=== PATIENT | male | born 1965 | race Caucasian/White ===

== ENCOUNTER 2016-12-06 17:48 | Observation (INO) | payer OTHER ==
[~2016-12-06] VITALS: Ht 180.3 cm; Wt 66.5 kg
[~2016-12-06 17:48] MED LIST: ALBUAER19 INH; ASPI-390 PO; FLV1 PO; MULTTAB PO; PRLSR20 PO; THM100 PO; TRAM-10 PO
[2016-12-06] MEDS ORDERED: SODIUM CHLORIDE 0.9% 1000ML 1,000 ML IV ONE (18:45)
[2016-12-06] MEDS ORDERED: SODIUM CHLORIDE 0.9% 1000ML 1,000 ML IV STA (18:45)
[2016-12-06] MEDS ORDERED: MoRPHine SULFATE 4 MG/ML 1 ML CARP\\VIAL IV STA (18:45)
[2016-12-06] MEDS ORDERED: ONDANSETRON INJ 2 MG/ML 2 ML VIAL IV STA (18:45)
--- NOTE | 2016-12-06 19:01 | EMERGENCY ROOM VISIT NOTE ---
History Report prepared by Marianna: Juanpablo Oakes Under the Supervision of: Dr. Baudilio Sims M.D. First contact with patient: 18:40 Chief Complaint: ABDOMINAL PAIN Stated Complaint: STOMACH MAJOR PAIN Nursing Triage Summary: Mid abdominal pain, history of stomach ulcer . History of Present Illness The patient is a 51 year old male who presents to the Emergency Room with complaints of persistent upper abdominal pain starting a few days ago. He describes it to be a sharp pain radiating to his back. He ran out of prescribed Prilosec a few days ago. He denies any recent trauma, falls, or injuries. He denies any recent weight gain or loss. He also denies any fevers, chest pain, shortness of breath, nausea, vomiting, dark/bloody stools, diarrhea, urinary symptoms, testicular pain/swelling, or any other complaints. He has a history of a stomach ulcer. He did not drink alcohol in the past few weeks and denies any history of alcohol withdrawal symptoms. He denies any history of abdominal surgeries or esophageal varices. He also denies any history of pancreatitis or gallbladder issues. Source of History: patient Onset: a few days ago Position: abdomen (upper) Quality: sharp Timing: other (persistent) Associated Symptoms: No SOB, No chest pain, No diarrhea, No fevers, No nausea, No urinary symptoms, No vomiting Review of Systems See HPI for pertinent positives & negatives. A total of 10 systems reviewed and were otherwise negative. Past Medical & Surgical Medical Problems: (1) Abdominal pain (2) Alcohol abuse (3) Chest pain (4) GERD (gastroesophageal reflux disease) (5) History traumatic pneumothorax (6) Pneumonia (7) Stomach problems (8) Tobacco use disorder (9) Ulcer Surgical Problems: (1) H/O chest tube placement Old medical records were reviewed. Nurse's notes were reviewed and I agree with. Family History FH: CAD (coronary artery disease) FATHER (triple bypass in 70s) BROTHER (NH in 50s) FH: cancer FATHER (bone and prostate CA) Social History Smoking Status: Current Every Day Smoker Alcohol Use: occasionally Drug Use: none Housing Status: lives alone Occupation Status: employed Current/Historical Medications Scheduled Multivitamins/Minerals (Mvi With Minerals), 1 TAB PO DAILY Scheduled PRN Dqlegix-Olsfsdeuqlfhc-Yceumjdj (Excedrin Migraine), 1 TAB PO Q12 PRN for Headache Allergies Coded Allergies: No Known Allergies (Verified , 12/06/16) Physical Exam Vital Signs Date Time Temp Pulse Resp B/P Pulse Ox O2 Delivery O2 Flow Rate FiO2 12/06/16 21:49 77 11 142/89 99 Room Air 12/06/16 20:00 76 16 124/74 96 Room Air 12/06/16 19:18 76 12/06/16 17:59 36.5 74 16 130/82 99 Room Air Physical Exam General: Mildly ill-appearing, somewhat pale, slender, middle aged male, in no acute distress. HEENT: Normal cephalic atraumatic. Pupils are equal round and reactive to light. Sclerae anicteric. Extraocular movements are intact. Oropharynx is pink with moist mucous membranes. No swelling of the mouth lips or tongue. Neck: Supple with a midline trachea. No meningeal signs or stiffness, no JVD or bruits. No Stridor. Chest: Clear to auscultation bilaterally. No wheezes or rhonchi. No increased work of breathing. Heart: regular rate and rhythm. Abdomen: Soft, mildly tender epigastric region, nondistended without rebound guarding or rigidity. Rectal: Brown stool, guaiac negative. No masses. Extremities: No cyanosis clubbing or edema. No calf tenderness or assymetry Spine/Back. Non tender to palpation. No CVA tenderness Skin: Good turgor without rashes. Neurologic exam: Cranial nerves two through 12 are intact. Motor and sensation are intact and symmetrical throughout. Medical Decision & Procedures ER Provider Diagnostic Interpretation: X-ray results as stated below per interpretation by me and the radiologist: CHEST ONE VIEW PORTABLE CLINICAL HISTORY: CHEST PAIN dyspnea COMPARISON STUDY: 12/31/2015 FINDINGS: Chronic blunting left lateral costophrenic angle. Lungs are clear. Diaphragms smooth. No evidence for cardiac enlargement. IMPRESSION: No acute process. Chronic change. Electronically signed by: Sb Obrien M.D. 12/06/2016 7:14 PM Dictated Date/Time: 12/06/2016 7:[address] results as stated below per my review and radiologist interpretation: ABDOMEN AND PELVIS CT WITH IV CONTRAST CT DOSE: 279.24 mGy.cm HISTORY: Pain. Nausea. epigastric pain, low hemoglobin TECHNIQUE: Multiaxial CT images of the abdomen and pelvis were performed following the use of intravenous contrast. COMPARISON STUDY: None. FINDINGS: Lung bases are clear. Liver and spleen appear unremarkable. Kidneys are negative for hydronephrosis. Gallbladder is negative for distention. Stomach is negative for distention. There is increased fecal load throughout the colon. This consistent with a component of fecal stasis. There is trace amount of free fluid within the pelvic cul-de-sac. There is evidence for a a colocolic short segment intussusception at the level of the splenic flexure. This most likely is transient. It may be of doubtful clinical significance. There is no evidence for pneumatosis. There is no significant small bowel distention. Bladder is midline. IMPRESSION: 1. Considerable increase in fecal material throughout the entire colon consistent with fecal stasis. 2. Short segment colo-colic Intussusception left upper quadrant near the splenic flexure which is most likely a transient and/or intermittent phenomenon. It is most likely of doubtful clinical significance unless it persists. 3. Remainder the study is negative. Electronically signed by: Sb Obrien M.D. 12/06/2016 9:23 PM Dictated Date/Time: 12/06/2016 9:18 PM Laboratory Results 12/06/16 18:55 Red Blood Count 5.16, Mean Corpuscular Volume 59.7, Mean Corpuscular Hemoglobin 16.7, Mean Corpuscular Hemoglobin Concent 27.9, Mean Platelet Volume 8.8, Neutrophils (%) (Auto) 86.9, Lymphocytes (%) (Auto) 7.0, Monocytes (%) (Auto) 3.7, Eosinophils (%) (Auto) 2.0, Basophils (%) (Auto) 0.2, Neutrophils # (Auto) 11.55, Lymphocytes # (Auto) 0.93, Monocytes # (Auto) 0.49, Eosinophils # (Auto) 0.26, Basophils # (Auto) 0.02 12/06/16 21:43 12/06/16 18:55 Test 12/06/16 18:55 12/06/16 19:02 12/06/16 21:43 White Blood Count 13.28 K/uL (4.8-10.8) Red Blood Count 5.16 M/uL (4.7-6.1) Hemoglobin 8.6 g/dL (14.0-18.0) Hematocrit 30.8 % (42-52) Mean Corpuscular Volume 59.7 fL (80-100) Mean Corpuscular Hemoglobin 16.7 pg (25-34) Mean Corpuscular Hemoglobin Concent 27.9 g/dl (32-36) Platelet Count 498 K/uL (130-400) Mean Platelet Volume 8.8 fL (7.4-10.4) Neutrophils (%) (Auto) 86.9 % Lymphocytes (%) (Auto) 7.0 % Monocytes (%) (Auto) 3.7 % Eosinophils (%) (Auto) 2.0 % Basophils (%) (Auto) 0.2 % Neutrophils # (Auto) 11.55 K/uL (1.4-6.5) Lymphocytes # (Auto) 0.93 K/uL (1.2-3.4) Monocytes # (Auto) 0.49 K/uL (0.11-0.59) Eosinophils # (Auto) 0.26 K/uL (0-0.5) Basophils # (Auto) 0.02 K/uL (0-0.2) RDW Standard Deviation 43.5 fL (36.4-46.3) RDW Coefficient of Variation 20.1 % (11.5-14.5) Immature Granulocyte % (Auto) 0.2 % Immature Granulocyte # (Auto) 0.03 K/uL (0.00-0.02) Polychromasia 1+ Hypochromasia PRESENT Microcytosis PRESENT Ovalocytes 1+ Urine Color YELLOW Urine Appearance CLEAR (CLEAR) Urine pH 6.0 (4.5-7.5) Urine Specific Lamar 1.027 (1.000-1.030) Urine Protein NEG (NEG) Urine Glucose (UA) NEG (NEG) Urine Ketones NEG (NEG) Urine Occult Blood NEG (NEG) Urine Nitrite NEG (NEG) Urine Bilirubin NEG (NEG) Urine Urobilinogen NEG (NEG) Urine Leukocyte Esterase NEG (NEG) Anion Gap 7.0 mmol/L (3-11) Est Creatinine Clear Calc Drug Dose 102.8 ml/min Estimated GFR () 119.9 Estimated GFR (Non- 103.4 BUN/Creatinine Ratio 20.0 (10-20) Calcium Level 8.8 mg/dl (8.5-10.1) Magnesium Level 2.6 mg/dl (1.8-2.4) Total Bilirubin 0.4 mg/dl (0.2-1) Direct Bilirubin 0.1 mg/dl (0-0.2) Aspartate Amino Transf (AST/SGOT) 18 U/L (15-37) Alanine Aminotransferase (ALT/SGPT) 25 U/L (12-78) Alkaline Phosphatase 94 U/L (45-117) Total Protein 7.9 gm/dl (6.4-8.2) Albumin 4.0 gm/dl (3.4-5.0) Lipase 184 U/L (73-393) Thyroid Stimulating Hormone (TSH) 0.405 uIu/ml (0.300-4.500) Urine Opiates Screen NEG (NEG) Urine Methadone, Qualitative NEG (NEG) Urine Barbiturates NEG (NEG) Urine Phencyclidine (PCP) Level NEG (NEG) Ur Amphetamine/Methamphetamine POS (NEG) MDMA (Ecstasy) Screen POS (NEG) Urine Benzodiazepines Screen NEG (NEG) Urine Cocaine Metabolite NEG (NEG) Urine Marijuana (THC) POS (NEG) Bedside Troponin I 0.000 ng/ml (0-0.045) Absolute Reticulocyte Count 0.04 10^6/uL (0.02-0.10) Percent Reticulocyte Count 0.8 % (0.5-2.0) Prothrombin Time 10.5 SECONDS (9.0-12.0) Prothromb Time International Ratio 1.0 (0.9-1.1) Activated Partial Thromboplast Time 28.7 SECONDS (21.0-31.0) Partial Thromboplastin Ratio 1.1 Iron Level 12 mcg/dl (35-175) Total Iron Binding Capacity 403 mcg/dl (250-450) Transferrin 309 mg/dl (200-360) Transferrin % Saturation 3 % (20-50) Ferritin 2.8 ng/ml (8.0-388.0) Ammonia 23.0 umol/L (11-32) Vitamin B12 Level 392 pg/mL (211-911) Folate 15.15 ng/mL (>5.38) Ethyl Alcohol mg/dL < 3.0 mg/dl (0-3) Laboratory studies as stated above per my review. Medications Administered Medications (Trade) Dose Ordered Sig/Mello Route Start Time Stop Time Status Last Admin Dose Admin Morphine Sulfate (MoRPHine SULFATE INJ) 4 mg NOW STAT IV 12/06/16 18:45 12/06/16 18:46 DC 4/21/17 19:08 4 MG Ondansetron HCl 4 mg 4 mg NOW STAT IV 12/06/16 18:45 12/06/16 18:46 DC 12/06/16 19:07 4 MG Sodium Chloride 1,000 ml @ 999 mls/hr Q1H1M STAT IV 12/06/16 18:45 12/06/16 19:45 DC 12/06/16 19:06 999 MLS/HR Sodium Chloride 1,000 ml @ 200 mls/hr Q5H ONCE IV 12/06/16 18:45 12/06/16 22:21 DC 12/06/16 20:05 200 MLS/HR Pantoprazole Sodium 80 mg/ Dextrose 120 ml @ 480 mls/hr TODAY@2114 IV 12/06/16 21:15 12/06/16 21:29 DC 12/06/16 21:30 480 MLS/HR Pantoprazole Sodium/Dextrose (Protonix Inj/D5 100ml) 100 ml @ 20 mls/hr Q5H IV 12/06/16 21:30 12/07/16 02:29 12/06/16 21:58 20 MLS/HR ECG Indication: abdominal pain Rate (beats per minute): 51 Rhythm: normal sinus Findings: no acute ischemic change, other (increased voltage) Comparison ECG Date: January 01, 2016 Change: no significant change ED Course 1839: Past medical records reviewed. The patient was evaluated in room B03B, and a complete history and physical examination were performed. 1844: Zofran Inj 4 mg IV, Morphine Sulfate 4 mg IV 2054: I reevaluated the patient who was doing well. He was sleeping deeply but arousable. 2114: Pantoprazole Sodium 80 mg/Dextrose 120 ml @ 480 mls/hr IV 2110: Upon reevaluation, the patient is resting comfortably. I discussed the results and treatment plan with the patient. He verbalized agreement of the treatment plan. I discussed the patient's case with Dr. Harris, from [facility]. The patient will be evaluated for further management. 2129: Pantoprazole Sodium 40 mg/Dextrose 100 ml @ 20 mls/hr IV 2336: Dr. Castellon, general surgeon from [facility], saw the patient in the Emergency Room. He does not feel that the patient has acute surgical indication. He recommended GI consultation. The patient currently does not have any pain and he will be going up to the floor. I reported Dr. Castellon's recommendations to Dr. Harris. Medical Decision Differential diagnosis includes but is not limited to peptic ulcer disease, gastritis, electrolyte or metabolic abnormalities, pancreatitis, liver or gallbladder disease, cardiac disease. This patient comes in as described above. He is placed in room B3. He was having epigastric pain however he does not appear to be in significant distress at present he has some mild epigastric pain he denies any blood or melena stool although does appear to be pale and is being treated for peptic ulcer disease apparently I did a rectal exam on him and at present is guaiac negative. IV access established hydrated normal saline was given morphine 4 mg IV and Zofran 4 mg IV and he felt much better after this and he was very sleepy for a while but then woke up. I did a CAT scan of his abdomen and there are no acute findings .he does have a possible intussusception type pattern however the radiologist thinks is most likely incidental and non-pathologic. When I reassess him, he has no pain. I'm concerned that he has dropped his hemoglobin significantly to the mid eights. I suspect that he does have a peptic ulcer disease and may be having intermittent bleeding. He does seem very skinny as well and says he's lost some weight and GI malignancy would also be in the differential still. He will likely need endoscopy and further GI workup. He was given IV Protonix IV bolus. I did consult Dr. Chatterjee who saw the patient in the emergency department. The patient was also seen by Dr. Castellon ,the surgeon on-call, and he does not feel he has any acute surgical issues and recommended GI see him as well. I relayed this to Dr. Chatterjee and Dr. Channing Whitehead will admit the patient. Consults Time Called: 2056 [facility]ing Phys[facility] Returned Call: 2110 I discussed the patient's case with Dr. Harris, from [facility]. Additional Consults: Time Called: 2336 Consulted Physician: Dr. Castellon, general surgeon from [facility] Returned Call: 2336 Additional Comments: Dr. Castellon, general surgeon from [facility], saw the patient in the Emergency Room. He does not feel that the patient has acute surgical indication. He recommended GI consultation. The patient currently does not have any pain and he will be going up to the floor. I reported Dr. Castellon's recommendations to Dr. Harris. Impression Primary Impression: Epigastric abdominal pain Additional Impressions: Anemia GI bleed Scribe Attestation The scribe's documentation has been prepared under my direction and personally reviewed by me in its entirety. I confirm that the note above accurately reflects all work, treatment, procedures, and medical decision making performed by me. Departure Information Dispostion Being Evaluated By Hospitalist Referrals Chester Freeman M.D. (PCP) Patient Instructions My [facility] Problem Qualifiers
--- NOTE | 2016-12-06 19:16 | DIAGNOSTIC IMAGING REPORT ---
CHEST ONE VIEW PORTABLE CLINICAL HISTORY: CHEST PAIN dyspnea COMPARISON STUDY: 12/31/2015 FINDINGS: Chronic blunting left lateral costophrenic angle. Lungs are clear. Diaphragms smooth. No evidence for cardiac enlargement. IMPRESSION: No acute process. Chronic change. Electronically signed by: Sb Obrien M.D. 12/06/2016 7:14 PM Dictated Date/Time: 12/06/2016 7:13 PM
[2016-12-06 19:25] LABS: CALCIUM 8.8 mg/dl (8.5-10.1); CREATININE 0.8 mg/dl (0.60-1.40)
[2016-12-06 19:38] LABS: BASO % 0.2 %; BASO ABS # 0.02 K/uL (0-0.2); COMPLETE YES; HEMATOCRIT 30.8 % (42-52); HYPOCHROMIA PRESENT; IG% 0.2 %; LYMPH ABS # 0.93 K/uL (1.2-3.4); MEAN CELL VOLUME 59.7 fL (80-100); MEAN CORPUSCULAR HEMOGLOBIN 16.7 pg (25-34); MEAN CORPUSCULAR HGB CONC 27.9 g/dl (32-36); MEAN PLATELET VOLUME 8.8 fL (7.4-10.4); MICROCYTOSIS PRESENT; MONO % 3.7 %; NEUT % 86.9 %; OVALOCYTES 1+; PLATELET COUNT 498 K/uL (130-400); POLYCHROMASIA 1+; RED BLOOD COUNT 5.16 M/uL (4.7-6.1); WHITE BLOOD COUNT 13.28 K/uL (4.8-10.8)
[2016-12-06] MEDS ORDERED: OPTIRAY 320 IV PRN (21:00)
[2016-12-06] MEDS ORDERED: PANTOprazole INJ 80 MG in DEXTROSE 5% 100ML IV SCH (21:15)
--- NOTE | 2016-12-06 21:26 | DIAGNOSTIC IMAGING REPORT ---
ABDOMEN AND PELVIS CT WITH IV CONTRAST CT DOSE: 279.24 mGy.cm HISTORY: Pain. Nausea. epigastric pain, low hemoglobin TECHNIQUE: Multiaxial CT images of the abdomen and pelvis were performed following the use of intravenous contrast. COMPARISON STUDY: None. FINDINGS: Lung bases are clear. Liver and spleen appear unremarkable. Kidneys are negative for hydronephrosis. Gallbladder is negative for distention. Stomach is negative for distention. There is increased fecal load throughout the colon. This consistent with a component of fecal stasis. There is trace amount of free fluid within the pelvic cul-de-sac. There is evidence for a a colocolic short segment intussusception at the level of the splenic flexure. This most likely is transient. It may be of doubtful clinical significance. There is no evidence for pneumatosis. There is no significant small bowel distention. Bladder is midline. IMPRESSION: 1. Considerable increase in fecal material throughout the entire colon consistent with fecal stasis. 2. Short segment colo-colic Intussusception left upper quadrant near the splenic flexure which is most likely a transient and/or intermittent phenomenon. It is most likely of doubtful clinical significance unless it persists. 3. Remainder the study is negative. Electronically signed by: Sb Obrien M.D. 12/06/2016 9:23 PM Dictated Date/Time: 12/06/2016 9:18 PM
[2016-12-06] MEDS ORDERED: PANTOprazole INJ 40 MG in DEXTROSE 5% 100ML IV SCH (21:30)
[2016-12-06 21:39] LABS: MAGNESIUM 2.6 mg/dl (1.8-2.4); THYROID STIMULATING HORMONE 0.405 uIu/ml (0.300-4.500)
[2016-12-06 21:46] LABS: URINE APPEARANCE CLEAR (CLEAR); URINE BILIRUBIN NEG (NEG); URINE COLOR YELLOW; URINE NITRITE NEG (NEG); URINE SPECIFIC GRAVITY 1.027 (1.000-1.030); UROBILINOGEN NEG (NEG); ZZUR CULT IF INDIC CLEAN CATCH NO
[2016-12-06 21:48] LABS: MANUAL MICROSCOPIC REQUIRED? NO; REVIEW REQ? NO
[2016-12-06 21:54] LABS: BENZODIAZEPINE, URINE NEG (NEG); COCAINE,URINE NEG (NEG); PHENCYCLIDINE, URINE NEG (NEG)
[2016-12-06 22:09] LABS: PARTIAL THROMBOPLASTIN RATIO 1.1; PROTHROMBIN TIME (PATIENT) 10.5 SECONDS (9.0-12.0)
[2016-12-06 22:17] LABS: HEMATOCRIT 28.2 % (42-52)
[2016-12-06 22:19] LABS: FERRITIN 2.8 ng/ml (8.0-388.0)
[2016-12-06] MEDS ORDERED: SODIUM CHLORIDE 0.9% 1000ML 1,000 ML IV SCH ×2 (22:30→23:00)
--- NOTE | 2016-12-06 22:41 | DIAGNOSTIC IMAGING REPORT ---
HEAD CT NONCONTRAST CT DOSE: 601.98 mGy.cm HISTORY: Mental status change mtz, lethargy TECHNIQUE: Multiaxial CT images of the head were performed without the use of intravenous contrast. Comparison: None. Findings: The paranasal sinuses and mastoid air cells are clear. The calvarium and skull base are intact. The ventricles and sulci are within normal limits. There is no mass, hematoma, midline shift, or acute infarct. Impression: No acute intracranial abnormality. Electronically signed by: Sb Obrien M.D. 12/06/2016 10:39 PM Dictated Date/Time: 12/06/2016 10:38 PM
[2016-12-06] MEDS ORDERED: THIAMINE HCL 100 MG/ML 2 ML VIAL IV STA (22:53)
[2016-12-06] MEDS ORDERED: LORAZEPAM 2 MG/ML 1 ML VIAL IV PRN (23:00)
[2016-12-06] MEDS ORDERED: ACETAMINOPHEN IV 650 MG in EMPTY BAG 0 ML IV PRN (23:00)
[2016-12-06] MEDS ORDERED: ACETAMINOPHEN 325 MG TAB PO PRN (23:00)
[2016-12-06] MEDS ORDERED: MoRPHine SULFATE 2 MG/ML CARP IV PRN (23:00)
[2016-12-06] MEDS ORDERED: ONDANSETRON INJ 2 MG/ML 2 ML VIAL IV PRN (23:00)
[2016-12-06] MEDS ORDERED: TRAMADOL HCL 50 MG TAB PO PRN (23:00)
[2016-12-06] MEDS ORDERED: THIAMINE HCL INJ 100 MG in SYRINGE 9 ML IV STA (23:10)
[2016-12-06 23:15] VITALS: O2SAT 100
[2016-12-06 23:40] VITALS: BP 142/89; PULSE 62; TEMP 36.4; O2SAT 100; Ht 180.3 cm; Wt 66.5 kg
[2016-12-06] MEDS ORDERED: DOCUSATE SODIUM 100 MG CAP PO STA (23:44)
--- NOTE | 2016-12-06 23:47 | History and Physical ---
History & Physical Date & Time of Service: Dec 06, 2016 at 23:36 Chief Complaint: Stomach Major Pain Primary Care Physician: Chester Freeman M.D. History of Present Illness Source: patient The patient is a 51 year old male who presents to the Emergency Room with complaints of persistent upper abdominal pain starting a few days ago. He describes it to be a sharp pain radiating to his back. He ran out of prescribed Prilosec 1-2 weeks days ago. He denies any recent trauma, falls, or injuries. He denies any recent weight gain or loss. He also denies any fevers, chest pain , shortness of breath, nausea, vomiting, dark/bloody stools, diarrhea, urinary symptoms, testicular pain/swelling, or any other complaints. He has a history of a stomach ulcer. He did not drink alcohol in the past few weeks and denies any history of alcohol withdrawal symptoms. He denies any history of abdominal surgeries or esophageal varices. He also denies any history of pancreatitis or gallbladder issues. now pt said he feels better, no abdominal pain, no nausea, no vomiting. Past Medical/Surgical History Medical Problems: (1) Alcohol abuse Status: Chronic (2) GERD (gastroesophageal reflux disease) Status: Chronic (3) History traumatic pneumothorax Status: Chronic (4) Pneumonia Status: Resolved (5) Stomach problems Status: Chronic (6) Tobacco use disorder Status: Chronic Surgical Problems: (1) H/O chest tube placement Status: Chronic Family History FH: CAD (coronary artery disease) FATHER (triple bypass in 70s) BROTHER ([place] in 50s) FH: cancer FATHER (bone and prostate CA) Social History Smoking Status: Current Every Day Smoker Alcohol Use: occasionally Drug Use: none Occupational Status: employed Immunizations History of Influenza Vaccine: No History of Tetanus Vaccine?: Yes Tetanus Immunization Date: Jan 25, 2007 History of Pneumococcal: No History of Hepatitis B Vaccine: No Allergies Coded Allergies: No Known Allergies (Verified , 12/06/16) Home Medications Scheduled Multivitamins/Minerals (Mvi With Minerals), 1 TAB PO DAILY Scheduled PRN Obmdfno-Osikqdlkxeabv-Kyyjxdvt (Excedrin Migraine), 1 TAB PO Q12 PRN for Headache Review of Systems Constitutional: No chills, No fatigue, No fever, No problem reported, No sweats , No weakness, No weight loss Eyes: No diplopia, No discharge, No eye pain, No problem reported, No redness, No worsening of vision ENT: No dental problems, No hearing loss, No nasal symptoms, No problem reported, No sore throat, No tinnitus, No trouble swallowing, No unusual epistaxis Respiratory: No cough, No dyspnea at rest, No dyspnea on exertion, No hemoptysis, No problem reported, No shortness of breath, No sputum, No wheezing Cardiovascular: No PND, No chest pain, No claudication, No edema, No orthopnea , No palpitations, No problem reported Abdomen: + pain (epigastric pain, ) Genitourinary - Male: No dysuria, No hematuria, No impotence, No lesions, No penile discharge, No problem reported, No urinary frequency, No urinary hesitancy, No urinary incontinence, No urinary retention, No urinary urgency Neurologic: No balance problems, No memory loss, No numbness/tingling, No paralysis, No problem reported, No vertigo, No weakness Psychiatric: No anhedonism, No anxiety, No depression symptoms, No insomnia, No problem reported, No substance abuse Endocrine: No excessive thirst, No excessive urination, No fatigue, No problem reported Hematologic / Lymphatic: No abnormal bleeding/bruising, No clotting problems, No night sweats, No problem reported, No swollen lymph nodes Allergic / Immunologic: No environmental allergies, No food allergies, No frequent infections, No hives, No pet sensitivities, No poor healing, No problem reported, No prolonged convalescence, No seasonal allergies Physical Exam Vital Signs Date Time Temp Pulse Resp B/P Pulse Ox O2 Delivery O2 Flow Rate FiO2 12/06/16 23:15 66 14 135/81 100 12/06/16 23:00 79 12/06/16 21:49 77 11 142/89 99 Room Air 12/06/16 20:00 76 16 124/74 96 Room Air 12/06/16 19:18 76 12/06/16 17:59 36.5 74 16 130/82 99 Room Air General Appearance: WD/WN, no apparent distress Head: normocephalic, atraumatic Eyes: normal inspection ENT: normal ENT inspection Neck: supple, no adenopathy, no JVD Respiratory/Chest: chest non-tender, lungs clear, normal breath sounds Cardiovascular: regular rate, rhythm, no edema, no gallop, no JVD Abdomen/GI: normal bowel sounds, non tender, soft, no organomegaly Extremities/Musculoskelatal: normal inspection, no calf tenderness, normal capillary refill Diagnostics Laboratory Results Results Past 24 Hours Test 12/06/16 18:55 12/06/16 19:02 12/06/16 21:20 12/06/16 21:43 Range/Units White Blood Count 13.28 4.8-10.8 K/uL Red Blood Count 5.16 4.7-6.1 M/uL Hemoglobin 8.6 7.7 14.0-18.0 g/dL Hematocrit 30.8 28.2 42-52 % Mean Corpuscular Volume 59.7 80-100 fL Mean Corpuscular Hemoglobin 16.7 25-34 pg Mean Corpuscular Hemoglobin Concent 27.9 32-36 g/dl Platelet Count 498 130-400 K/uL Mean Platelet Volume 8.8 7.4-10.4 fL Neutrophils (%) (Auto) 86.9 % Lymphocytes (%) (Auto) 7.0 % Monocytes (%) (Auto) 3.7 % Eosinophils (%) (Auto) 2.0 % Basophils (%) (Auto) 0.2 % Neutrophils # (Auto) 11.55 1.4-6.5 K/uL Lymphocytes # (Auto) 0.93 1.2-3.4 K/uL Monocytes # (Auto) 0.49 0.11-0.59 K/uL Eosinophils # (Auto) 0.26 0-0.5 K/uL Basophils # (Auto) 0.02 0-0.2 K/uL RDW Standard Deviation 43.5 36.4-46.3 fL RDW Coefficient of Variation 20.1 11.5-14.5 % Immature Granulocyte % (Auto) 0.2 % Immature Granulocyte # (Auto) 0.03 0.00-0.02 K/uL Polychromasia 1+ Hypochromasia PRESENT Microcytosis PRESENT Ovalocytes 1+ Urine Color YELLOW Urine Appearance CLEAR CLEAR Urine pH 6.0 4.5-7.5 Urine Specific [place] 1.027 1.000-1.030 Urine Protein NEG NEG Urine Glucose (UA) NEG NEG Urine Ketones NEG NEG Urine Occult Blood NEG NEG Urine Nitrite NEG NEG Urine Bilirubin NEG NEG Urine Urobilinogen NEG NEG Urine Leukocyte Esterase NEG NEG Sodium Level 140 136-145 mmol/L Potassium Level 4.0 3.5-5.1 mmol/L Chloride Level 105 98-107 mmol/L Carbon Dioxide Level 28 21-32 mmol/L Anion Gap 7.0 3-11 mmol/L Blood Urea Nitrogen 16 7-18 mg/dl Creatinine 0.80 0.60-1.40 mg/dl Est Creatinine Clear Calc Drug Dose 102.8 ml/min Estimated GFR () 119.9 Estimated GFR (Non- 103.4 BUN/Creatinine Ratio 20.0 10-20 Random Glucose 120 70-99 mg/dl Calcium Level 8.8 8.5-10.1 mg/dl Magnesium Level 2.6 1.8-2.4 mg/dl Total Bilirubin 0.4 0.2-1 mg/dl Direct Bilirubin 0.1 0-0.2 mg/dl Aspartate Amino Transf (AST/SGOT) 18 15-37 U/L Alanine Aminotransferase (ALT/SGPT) 25 12-78 U/L Alkaline Phosphatase 94 45-117 U/L Total Protein 7.9 6.4-8.2 gm/dl Albumin 4.0 3.4-5.0 gm/dl Lipase 184 73-393 U/L Thyroid Stimulating Hormone (TSH) 0.405 0.300-4.500 uIu/ml Urine Opiates Screen NEG NEG Urine Methadone, Qualitative NEG NEG Urine Barbiturates NEG NEG Urine Phencyclidine (PCP) Level NEG NEG Ur Amphetamine/Methamphetamine POS NEG MDMA (Ecstasy) Screen POS NEG Urine Benzodiazepines Screen NEG NEG Urine Cocaine Metabolite NEG NEG Urine Marijuana (THC) POS NEG Bedside Troponin I 0.000 0-0.045 ng/ml Transferrin % Saturation 3 20-50 % Absolute Reticulocyte Count 0.04 0.02-0.10 10^6/uL Percent Reticulocyte Count 0.8 0.5-2.0 % Prothrombin Time 10.5 9.0-12.0 SECONDS Prothromb Time International Ratio 1.0 0.9-1.1 Activated Partial Thromboplast Time 28.7 21.0-31.0 SECONDS Partial Thromboplastin Ratio 1.1 Iron Level 12 35-175 mcg/dl Total Iron Binding Capacity 403 250-450 mcg/dl Transferrin 309 200-360 mg/dl Ferritin 2.8 8.0-388.0 ng/ml Ammonia 23.0 11-32 umol/L Vitamin B12 Level 392 211-911 pg/mL Folate 15.15 >5.38 ng/mL Ethyl Alcohol mg/dL < 3.0 0-3 mg/dl Diagnostic Radiology CT scan abd + pelvis-IMPRESSION: 1. Considerable increase in fecal material throughout the entire colon consistent with fecal stasis. 2. Short segment colo-colic Intussusception left upper quadrant near the splenic flexure which is most likely a transient and/or intermittent phenomenon. It is most likely of doubtful clinical significance unless it persists. 3. Remainder the study is negative. Impression Assessment and Plan IMP: anemia, possible GI ulcer cause Short segment colo-colic Intussusception left upper quadrant near the splenic flexure which is most likely a transient and/or intermittent phenomenon. It is most likely of doubtful clinical significance unless it persists. I recommend to hospitalist admit pt to hospital, GI doctor consult to R/O GI ulcer, barium enema study to Dx and treatment for colo-colonic intussusception, no surgical indication now, repeat labs in am. I will F/U D/W ER attending, VTE Prophylaxis VTE Risk Assessment Done? Y/N: Yes Risk Level: Moderate
[2016-12-07] MEDS ORDERED: GABAPENTIN 600 MG TAB PO STA (00:16)
[2016-12-07] MEDS ORDERED: IV FLUIDS COMPLETED PRN (00:45)
--- NOTE | 2016-12-07 00:57 | HISTORY & PHYSICAL EXAMINATION ---
DATE OF ADMISSION: 12/06/2016 PRIMARY CARE PHYSICIAN: Dr. Freeman. Hx obtained from px and records. CHIEF COMPLAINT: Abdominal pain. HISTORY OF PRESENT ILLNESS: Medical history significant alcohol and tobacco abuse, as per records. Recent confinement, last December 2015, for chest pain attributed to musculoskeletal pathology. A few days' history of epigastric pain, sharp, sometimes going to the back. No nausea, no vomiting. Good bowel movement. No fever, no chills, no black or bloody stools, no emesis, no unusual weight loss. Patient admits to taking a lot of Excedrin for headache symptoms, about 4x day. Px compliant with home OTC Prilosec. At the Emergency Room, the patient received Protonix. Hemoccult in the ER was negative. MEDICAL HISTORY: As above. No previous endoscopies in the past. SURGERIES: He had a chest tube insertion for traumatic pneumothorax. HOME MEDICATIONS: Home medications are Excedrin, multivitamins, Prilosec. ALLERGIES: No known drug allergies. FAMILY HISTORY: Heart disease, bone and prostate cancer. PERSONAL AND SOCIAL HISTORY: Half pack daily. Last drink was about 2 weeks ago. [employer] employee. REVIEW OF SYSTEMS: As per HPI, all other ROS negative. PHYSICAL EXAMINATION: VITAL SIGNS: Blood pressure was noted to be 130/80, pulse rate 70, RR 16, temperature 36.5, sats 98 on room air. GENERAL: Noted to be uncomfortable. No respiratory distress. lethargic SKIN: pallor. HEENT: Pale palpebral conjunctivae. Dry mucosa. NECK: No JVD. supple CHEST: Clear to auscultation. HEART: Regular rate and rhythm. ABDOMEN: Epigastric tenderness. EXTREMITIES: No edema. no tenderness NEUROLOGIC: No gross focality, except for some lethargy. LABS: Hemoglobin 8.6, hematocrit 30.8, patient's baseline was 13 from last year, white cell count 13, platelets 498. Coags were normal. Sodium 140, potassium 4, chloride 105, CO2 28, BUN 16.8, glucose 120. LFTs, lipase normal. CT of the head, no acute pathology. Chest x-ray, no acute process. CT abdomen and pelvis showed considerable increase in fecal material, could consider fecal stasis, short segment colocolic intussusception, LUQ, splenic flexure, most likely transient and/or intermittent phenomenon, possible doubtful clinical process. UA normal UDS pos for amphetamine, ecstasy, marijuana ASSESSMENT: 1. Abdominal pain possible gastritis from Excedrin/ETOH intake, ? colo-colonic intussusception on CT fecal retention. 2. Vdakl-[id number] anemia, hemoglobin drop. poss slow GI bleed initial FOBT negative. 3. Ongoing tobacco abuse, alcohol abuse. PLAN: Observation GMF analgesia. Patient cautioned about use of OTC NSAIDs. Repeat Hemoccult. anemia sweeney ff HH, transfuse prbc if Hg less than 7 and/or symptomatic anemia May need GI consult double home PPI dose Surgery consult RE abnormal CT, possible intussusception DT precautions. DVT prophylaxis, SCDs re poss GI Bleed nicotine patch Full code. Patient considering following up with Dr. Pieter Brody upon discharge from the hospital. OTNID
[2016-12-07 03:38] VITALS: BP 161/88; PULSE 79; TEMP 36.9; O2SAT 99
[2016-12-07] MEDS: GABAPENTIN 600 MG TAB PO SCH ×3 (05:43→19:44)
[2016-12-07 07:17] VITALS: BP 138/81; PULSE 71; TEMP 36.5; O2SAT 97
[2016-12-07 07:41] LABS: HEMATOCRIT 28.4 % (42-52); MEAN CELL VOLUME 60.2 fL (80-100); MEAN CORPUSCULAR HEMOGLOBIN 16.5 pg (25-34); MEAN CORPUSCULAR HGB CONC 27.5 g/dl (32-36); MEAN PLATELET VOLUME 8.4 fL (7.4-10.4); PLATELET COUNT 416 K/uL (130-400); RED BLOOD COUNT 4.72 M/uL (4.7-6.1); WHITE BLOOD COUNT 8.73 K/uL (4.8-10.8)
[2016-12-07 08:09] LABS: ANISOCYTOSIS PRESENT; BASO % 0.5 %; BASO ABS # 0.04 K/uL (0-0.2); COMPLETE YES; EOS % 4.9 %; HYPOCHROMIA PRESENT; IG% 0.2 %; LYMPH % 13.3 %; LYMPH ABS # 1.16 K/uL (1.2-3.4); MICROCYTOSIS PRESENT; NEUT % 75.1 %; OVALOCYTES 1+
[2016-12-07] MEDS: THIAMINE HCL 100 MG TAB PO SCH (08:25)
[2016-12-07] MEDS: NICOTINE 14 MG/24 HR TDSY TD SCH (08:26)
[2016-12-07] MEDS: PANTOprazole SOD 40 MG TAB PO SCH ×2 (08:26→21:06)
[2016-12-07] MEDS: CEROVITE ADV FORMULA TAB PO SCH (08:26)
[2016-12-07] MEDS: DOCUSATE SODIUM 100 MG CAP PO SCH (08:27)
--- NOTE | 2016-12-07 10:04 | Surgery Progress Note ---
Surgery Progress Note Date of Service Dec 07, 2016. Subjective + feeling well pt is doing better, no abdominal pain, no nausea, no vomiting, passed gas, he tolerated diet. Objective Vital Signs: Date Time Temp Pulse Resp B/P Pulse Ox O2 Delivery O2 Flow Rate FiO2 12/07/16 07:17 36.5 71 16 138/81 97 Room Air 12/07/16 03:38 36.9 79 16 161/88 99 Room Air 12/06/16 23:40 Room Air 12/06/16 23:40 Room Air 12/06/16 23:40 36.4 62 16 142/89 100 Room Air 12/06/16 23:15 66 14 135/81 100 12/06/16 23:00 79 12/06/16 21:49 77 11 142/89 99 Room Air 12/06/16 20:00 76 16 124/74 96 Room Air 12/06/16 19:18 76 12/06/16 17:59 36.5 74 16 130/82 99 Room Air General Appearance: WD/WN Head: normocephalic Neck: supple Respiratory/Chest: chest non-tender, lungs clear Cardiovascular: regular rate, rhythm, no edema, no gallop, no JVD Abdomen: normal bowel sounds, non tender, non distended, soft, no organomegaly Extremities: normal range of motion, non-tender, normal inspection Laboratory Results: Results Past 24 Hours Test 12/06/16 18:55 12/06/16 19:02 12/06/16 21:20 12/06/16 21:43 Range/Units White Blood Count 13.28 4.8-10.8 K/uL Red Blood Count 5.16 4.7-6.1 M/uL Hemoglobin 8.6 7.7 14.0-18.0 g/dL Hematocrit 30.8 28.2 42-52 % Mean Corpuscular Volume 59.7 80-100 fL Mean Corpuscular Hemoglobin 16.7 25-34 pg Mean Corpuscular Hemoglobin Concent 27.9 32-36 g/dl Platelet Count 498 130-400 K/uL Mean Platelet Volume 8.8 7.4-10.4 fL Neutrophils (%) (Auto) 86.9 % Lymphocytes (%) (Auto) 7.0 % Monocytes (%) (Auto) 3.7 % Eosinophils (%) (Auto) 2.0 % Basophils (%) (Auto) 0.2 % Neutrophils # (Auto) 11.55 1.4-6.5 K/uL Lymphocytes # (Auto) 0.93 1.2-3.4 K/uL Monocytes # (Auto) 0.49 0.11-0.59 K/uL Eosinophils # (Auto) 0.26 0-0.5 K/uL Basophils # (Auto) 0.02 0-0.2 K/uL RDW Standard Deviation 43.5 36.4-46.3 fL RDW Coefficient of Variation 20.1 11.5-14.5 % Immature Granulocyte % (Auto) 0.2 % Immature Granulocyte # (Auto) 0.03 0.00-0.02 K/uL Polychromasia 1+ Hypochromasia PRESENT Microcytosis PRESENT Ovalocytes 1+ Urine Color YELLOW Urine Appearance CLEAR CLEAR Urine pH 6.0 4.5-7.5 Urine Specific [place] 1.027 1.000-1.030 Urine Protein NEG NEG Urine Glucose (UA) NEG NEG Urine Ketones NEG NEG Urine Occult Blood NEG NEG Urine Nitrite NEG NEG Urine Bilirubin NEG NEG Urine Urobilinogen NEG NEG Urine Leukocyte Esterase NEG NEG Sodium Level 140 136-145 mmol/L Potassium Level 4.0 3.5-5.1 mmol/L Chloride Level 105 98-107 mmol/L Carbon Dioxide Level 28 21-32 mmol/L Anion Gap 7.0 3-11 mmol/L Blood Urea Nitrogen 16 7-18 mg/dl Creatinine 0.80 0.60-1.40 mg/dl Est Creatinine Clear Calc Drug Dose 102.8 ml/min Estimated GFR () 119.9 Estimated GFR (Non- 103.4 BUN/Creatinine Ratio 20.0 10-20 Random Glucose 120 70-99 mg/dl Calcium Level 8.8 8.5-10.1 mg/dl Magnesium Level 2.6 1.8-2.4 mg/dl Total Bilirubin 0.4 0.2-1 mg/dl Direct Bilirubin 0.1 0-0.2 mg/dl Aspartate Amino Transf (AST/SGOT) 18 15-37 U/L Alanine Aminotransferase (ALT/SGPT) 25 12-78 U/L Alkaline Phosphatase 94 45-117 U/L Total Protein 7.9 6.4-8.2 gm/dl Albumin 4.0 3.4-5.0 gm/dl Lipase 184 73-393 U/L Thyroid Stimulating Hormone (TSH) 0.405 0.300-4.500 uIu/ml Urine Opiates Screen NEG NEG Urine Methadone, Qualitative NEG NEG Urine Barbiturates NEG NEG Urine Phencyclidine (PCP) Level NEG NEG Ur Amphetamine/Methamphetamine POS NEG MDMA (Ecstasy) Screen POS NEG Urine Benzodiazepines Screen NEG NEG Urine Cocaine Metabolite NEG NEG Urine Marijuana (THC) POS NEG Bedside Troponin I 0.000 0-0.045 ng/ml Transferrin % Saturation 3 20-50 % Absolute Reticulocyte Count 0.04 0.02-0.10 10^6/uL Percent Reticulocyte Count 0.8 0.5-2.0 % Prothrombin Time 10.5 9.0-12.0 SECONDS Prothromb Time International Ratio 1.0 0.9-1.1 Activated Partial Thromboplast Time 28.7 21.0-31.0 SECONDS Partial Thromboplastin Ratio 1.1 Iron Level 12 35-175 mcg/dl Total Iron Binding Capacity 403 250-450 mcg/dl Transferrin 309 200-360 mg/dl Ferritin 2.8 8.0-388.0 ng/ml Ammonia 23.0 11-32 umol/L Vitamin B12 Level 392 211-911 pg/mL Folate 15.15 >5.38 ng/mL Ethyl Alcohol mg/dL < 3.0 0-3 mg/dl Test 12/07/16 07:06 Range/Units White Blood Count 8.73 4.8-10.8 K/uL Red Blood Count 4.72 4.7-6.1 M/uL Hemoglobin 7.8 14.0-18.0 g/dL Hematocrit 28.4 42-52 % Mean Corpuscular Volume 60.2 80-100 fL Mean Corpuscular Hemoglobin 16.5 25-34 pg Mean Corpuscular Hemoglobin Concent 27.5 32-36 g/dl Platelet Count 416 130-400 K/uL Mean Platelet Volume 8.4 7.4-10.4 fL Neutrophils (%) (Auto) 75.1 % Lymphocytes (%) (Auto) 13.3 % Monocytes (%) (Auto) 6.0 % Eosinophils (%) (Auto) 4.9 % Basophils (%) (Auto) 0.5 % Neutrophils # (Auto) 6.56 1.4-6.5 K/uL Lymphocytes # (Auto) 1.16 1.2-3.4 K/uL Monocytes # (Auto) 0.52 0.11-0.59 K/uL Eosinophils # (Auto) 0.43 0-0.5 K/uL Basophils # (Auto) 0.04 0-0.2 K/uL RDW Standard Deviation 43.4 36.4-46.3 fL RDW Coefficient of Variation 19.9 11.5-14.5 % Immature Granulocyte % (Auto) 0.2 % Immature Granulocyte # (Auto) 0.02 0.00-0.02 K/uL Hypochromasia PRESENT Anisocytosis PRESENT Microcytosis PRESENT Ovalocytes 1+ Assessment & Plan IMP:Short segment colo-colic Intussusception left upper quadrant near the splenic flexure which is most likely a transient and/or intermittent phenomenon. base on pt has no abdominal pain, no N/V, I sign off today, please call me if any change, Thanks, regular diet
[2016-12-07 12:00] VITALS: BP 135/82; PULSE 69; TEMP 36.7; O2SAT 99
[2016-12-07 12:25] LABS: HEMATOCRIT 31.7 % (42-52)
[2016-12-07 15:46] VITALS: BP 146/89; PULSE 69; TEMP 36.3; O2SAT 99
[2016-12-07 17:48] LABS: HEMATOCRIT 29.9 % (42-52)
--- NOTE | 2016-12-07 18:37 | Progress Note ---
Subjective Date of Service: Dec 07, 2016. Subjective Pt evaluation today including: conversation w/ patient, physical exam, lab review, review of studies, review of inpatient medication list Saw/examined the patient in room 376 Doing well, abdominal pain improved; no nausea/vomiting tolerated clears; eager to eat "real food" Problem List Medical Problems: (1) Anemia Status: Acute (2) Epigastric abdominal pain Status: Acute (3) GI bleed Status: Acute Review of Systems Constitutional: No chills, No fever Respiratory: No shortness of breath Cardiac: No chest pain Abdomen: + nausea, + pain (improving, umbilical pain), + vomiting (resolved) Heme: No abnormal bleeding/bruising Medications Current Inpatient Medications Medications (Trade) Dose Ordered Sig/Mello Route Start Time Stop Time Status Last Admin Dose Admin Ioversol (Optiray 320) 100 ml UD PRN IV 12/06/16 21:00 12/10/16 20:59 Acetaminophen (Tylenol Tab) 650 mg Q4H PRN PO 12/06/16 23:00 01/05/17 22:59 Multivitamins/ Minerals (Multivitamin W/ Minerals Tab) 1 tab DAILY PO 12/07/16 09:00 01/06/17 08:59 12/07/16 08:26 1 TAB Pantoprazole Sodium (Protonix Tab) 40 mg BID PO 12/07/16 09:00 01/06/17 08:59 12/07/16 08:26 40 MG Ondansetron HCl (Zofran Inj) 4 mg Q6H PRN IV 12/06/16 23:00 01/05/17 22:59 Docusate Sodium (coLACE CAP) 100 mg DAILY PO 12/07/16 09:00 Thiamine HCl (Vitamin B-1 Tab) 100 mg QAM PO 12/07/16 09:00 01/06/17 08:59 12/07/16 08:25 100 MG Folic Acid 1 mg 1 mg QAM PO 12/07/16 09:00 01/06/17 08:59 12/07/16 08:25 1 MG Acetaminophen/ Empty Bag (Ofirmev Iv/ Empty Iv Bag 100ml) 65 ml @ 260 mls/hr Q6H PRN IV 12/06/16 23:00 01/05/17 22:59 Tramadol HCl (Ultram Tab) 25 mg Q6H PRN PO 12/06/16 23:00 01/05/17 22:59 Morphine Sulfate (MoRPHine SULFATE INJ) 2 mg Q4H PRN IV 12/06/16 23:00 12/20/16 22:59 Lorazepam (Ativan Inj) 1 mg ONE PRN IV 12/06/16 23:00 Nicotine (Nicoderm Cq 14MG Patch) 1 patch QAM TD 12/07/16 09:00 01/06/17 08:59 12/07/16 08:26 1 PATCH Miscellaneous (Remove Nicoderm Patch) 1 ea HS N/A 12/07/16 21:00 01/06/17 20:59 Gabapentin (Neurontin Tab) 600 mg Q8H PO 12/07/16 20:00 12/08/16 12:01 Gabapentin (Neurontin Tab) 600 mg Q12H PO 12/09/16 00:00 12/09/16 12:01 Gabapentin (Neurontin Tab) 600 mg TODAY@1200 PO 12/10/16 12:00 12/10/16 12:01 Miscellaneous (Iv Fluids Completed) 1 ea PRN PRN N/A 12/07/16 00:45 12/07/17 00:44 Objective Vital Signs Date Time Temp Pulse Resp B/P Pulse Ox O2 Delivery O2 Flow Rate FiO2 12/07/16 15:46 36.3 69 18 146/89 99 Room Air 12/07/16 15:30 Room Air 12/07/16 12:00 36.7 69 16 135/82 99 Room Air 12/07/16 08:00 Room Air 12/07/16 07:17 36.5 71 16 138/81 97 Room Air 12/07/16 03:38 36.9 79 16 161/88 99 Room Air 12/06/16 23:40 Room Air 12/06/16 23:40 Room Air 12/06/16 23:40 36.4 62 16 142/89 100 Room Air 12/06/16 23:15 66 14 135/81 100 12/06/16 23:00 79 12/06/16 21:49 77 11 142/89 99 Room Air 12/06/16 20:00 76 16 124/74 96 Room Air 12/06/16 19:18 76 Physical Exam General Appearance: no apparent distress, + thin Respiratory/Chest: lungs clear, normal breath sounds, no respiratory distress, no accessory muscle use Cardiovascular: regular rate, rhythm, no edema, no murmur Abdomen: normal bowel sounds, soft, + tenderness (mild epigastric/umbilical tenderness) Laboratory Results Last 24 Hours Test 12/06/16 18:55 12/06/16 19:02 12/06/16 21:20 12/06/16 21:43 White Blood Count 13.28 K/uL Red Blood Count 5.16 M/uL Hemoglobin 8.6 g/dL 7.7 g/dL Hematocrit 30.8 % 28.2 % Mean Corpuscular Volume 59.7 fL Mean Corpuscular Hemoglobin 16.7 pg Mean Corpuscular Hemoglobin Concent 27.9 g/dl Platelet Count 498 K/uL Mean Platelet Volume 8.8 fL Neutrophils (%) (Auto) 86.9 % Lymphocytes (%) (Auto) 7.0 % Monocytes (%) (Auto) 3.7 % Eosinophils (%) (Auto) 2.0 % Basophils (%) (Auto) 0.2 % Neutrophils # (Auto) 11.55 K/uL Lymphocytes # (Auto) 0.93 K/uL Monocytes # (Auto) 0.49 K/uL Eosinophils # (Auto) 0.26 K/uL Basophils # (Auto) 0.02 K/uL RDW Standard Deviation 43.5 fL RDW Coefficient of Variation 20.1 % Immature Granulocyte % (Auto) 0.2 % Immature Granulocyte # (Auto) 0.03 K/uL Polychromasia 1+ Hypochromasia PRESENT Microcytosis PRESENT Ovalocytes 1+ Urine Color YELLOW Urine Appearance CLEAR Urine pH 6.0 Urine Specific [place] 1.027 Urine Protein NEG Urine Glucose (UA) NEG Urine Ketones NEG Urine Occult Blood NEG Urine Nitrite NEG Urine Bilirubin NEG Urine Urobilinogen NEG Urine Leukocyte Esterase NEG Sodium Level 140 mmol/L Potassium Level 4.0 mmol/L Chloride Level 105 mmol/L Carbon Dioxide Level 28 mmol/L Anion Gap 7.0 mmol/L Blood Urea Nitrogen 16 mg/dl Creatinine 0.80 mg/dl Est Creatinine Clear Calc Drug Dose 102.8 ml/min Estimated GFR () 119.9 Estimated GFR (Non- 103.4 BUN/Creatinine Ratio 20.0 Random Glucose 120 mg/dl Calcium Level 8.8 mg/dl Magnesium Level 2.6 mg/dl Total Bilirubin 0.4 mg/dl Direct Bilirubin 0.1 mg/dl Aspartate Amino Transf (AST/SGOT) 18 U/L Alanine Aminotransferase (ALT/SGPT) 25 U/L Alkaline Phosphatase 94 U/L Total Protein 7.9 gm/dl Albumin 4.0 gm/dl Lipase 184 U/L Thyroid Stimulating Hormone (TSH) 0.405 uIu/ml Urine Opiates Screen NEG Urine Methadone, Qualitative NEG Urine Barbiturates NEG Urine Phencyclidine (PCP) Level NEG Ur Amphetamine/Methamphetamine POS MDMA (Ecstasy) Screen POS Urine Benzodiazepines Screen NEG Urine Cocaine Metabolite NEG Urine Marijuana (THC) POS Bedside Troponin I 0.000 ng/ml Transferrin % Saturation % 3 % Absolute Reticulocyte Count 0.04 10^6/uL Percent Reticulocyte Count 0.8 % Prothrombin Time 10.5 SECONDS Prothromb Time International Ratio 1.0 Activated Partial Thromboplast Time 28.7 SECONDS Partial Thromboplastin Ratio 1.1 Iron Level 12 mcg/dl Total Iron Binding Capacity 403 mcg/dl Transferrin 309 mg/dl Ferritin 2.8 ng/ml Ammonia 23.0 umol/L Vitamin B12 Level 392 pg/mL Folate 15.15 ng/mL Ethyl Alcohol mg/dL < 3.0 mg/dl Test 12/07/16 07:06 12/07/16 12:10 12/07/16 17:35 White Blood Count 8.73 K/uL Red Blood Count 4.72 M/uL Hemoglobin 7.8 g/dL 8.5 g/dL 8.1 g/dL Hematocrit 28.4 % 31.7 % 29.9 % Mean Corpuscular Volume 60.2 fL Mean Corpuscular Hemoglobin 16.5 pg Mean Corpuscular Hemoglobin Concent 27.5 g/dl Platelet Count 416 K/uL Mean Platelet Volume 8.4 fL Neutrophils (%) (Auto) 75.1 % Lymphocytes (%) (Auto) 13.3 % Monocytes (%) (Auto) 6.0 % Eosinophils (%) (Auto) 4.9 % Basophils (%) (Auto) 0.5 % Neutrophils # (Auto) 6.56 K/uL Lymphocytes # (Auto) 1.16 K/uL Monocytes # (Auto) 0.52 K/uL Eosinophils # (Auto) 0.43 K/uL Basophils # (Auto) 0.04 K/uL RDW Standard Deviation 43.4 fL RDW Coefficient of Variation 19.9 % Immature Granulocyte % (Auto) 0.2 % Immature Granulocyte # (Auto) 0.02 K/uL Hypochromasia PRESENT Anisocytosis PRESENT Microcytosis PRESENT Ovalocytes 1+ Hepatitis C Antibody Screen NEG Assessment and Plan This is a 51 year old male with PMH of long-term alcohol use, tobacco use presents with epigastric tenderness and found to have anemia Microcytic Anemia, likely Iron Deficiency Hgb on admission ~ 8.6 In December of 2015 is Hgb was around 13 MCV is low iron and transferring % saturation are low and TIBC is in the upper limits of normal, likely iron deficiency check stool occult question of possible gastric ulcer in the past? does have long-term alcohol use; possible varices? has never had a colonoscopy GI consulted Has not required transfusion as of yet PPI BID Epigastric Abdominal Pain Abdominal CT Short segment colo-colic Intussusception left upper quadrant near the splenic flexure which is most likely a transient and/or intermittent phenomenon. It is most likely of doubtful clinical significance unless it persists. appreciate general surgery input since the pain has since subsided no further management necessary at this time patient initially on clears, will advance as tolerated Alcohol Use patient presented with < 3.0 alcohol level He does admit to drinking multiple drinks daily uses folic acid, thiamine, multivitamin as prescribed by another prescriber at home currently on gabapentin protocol no withdrawal symptoms noted DVT ppx SCDs FULL CODE
--- NOTE | 2016-12-07 19:33 | Medical Consult ---
Consultation Note Date of Service Dec 07, 2016. Consultation Note Chart reviewed, full consult to follow. Pt with h/o heavy alcohol use, regular NSAID use admit with abd pain, iron deficiency anemia. LFT's unremarkable, CT shows constipation ,enteric intususception of dubious significance. U tox pos for mult drugs. Would anticipate outpt EGD/cscopy, iron and folic acid supplementation. Check Hp serology.
[2016-12-07 22:54] VITALS: BP 139/81; PULSE 64; TEMP 36.8; O2SAT 99
[2016-12-08] MEDS: GABAPENTIN 600 MG TAB PO SCH ×2 (04:00→13:15)
[2016-12-08 06:40] LABS: HEMATOCRIT 31.2 % (42-52); MEAN CELL VOLUME 60.2 fL (80-100); MEAN CORPUSCULAR HGB CONC 26.6 g/dl (32-36); MEAN PLATELET VOLUME 8.5 fL (7.4-10.4); PLATELET COUNT 454 K/uL (130-400); RED BLOOD COUNT 5.18 M/uL (4.7-6.1); WHITE BLOOD COUNT 7.67 K/uL (4.8-10.8)
[2016-12-08 06:47] VITALS: BP 143/79; PULSE 72; TEMP 36.8; O2SAT 99
[2016-12-08 06:52] LABS: ANISOCYTOSIS PRESENT; BASO % 1.6 %; BASO ABS # 0.12 K/uL (0-0.2); COMPLETE YES; HYPOCHROMIA PRESENT; IG% 0.3 %; LYMPH % 21.4 %; LYMPH ABS # 1.64 K/uL (1.2-3.4); MICROCYTOSIS PRESENT; MONO % 5.9 %; NEUT % 62.8 %; OVALOCYTES 1+
[2016-12-08 07:04] LABS: BUN/CREATININE RATIO 14.4 (10-20); CALCIUM 8.6 mg/dl (8.5-10.1); CREATININE 0.76 mg/dl (0.60-1.40); MAGNESIUM 2.4 mg/dl (1.8-2.4); POTASSIUM 4.1 mmol/L (3.5-5.1)
[2016-12-08] MEDS: DOCUSATE SODIUM 100 MG CAP PO SCH (09:06)
[2016-12-08] MEDS: THIAMINE HCL 100 MG TAB PO SCH (09:06)
[2016-12-08] MEDS: CEROVITE ADV FORMULA TAB PO SCH (09:06)
[2016-12-08] MEDS: NICOTINE 14 MG/24 HR TDSY TD SCH (09:06)
[2016-12-08] MEDS: PANTOprazole SOD 40 MG TAB PO SCH (09:07)
--- NOTE | 2016-12-08 09:47 | Progress Note ---
Subjective Date of Service: Dec 08, 2016. Subjective Pt evaluation today including: conversation w/ patient, physical exam, lab review, review of studies, review of inpatient medication list Saw/examined the patient in room 376 He's doing well, tolerated solid food with no diarrhea, no nausea, no vomiting abdominal pain resolved Problem List Medical Problems: (1) Anemia Status: Acute (2) Epigastric abdominal pain Status: Acute (3) GI bleed Status: Acute Review of Systems Constitutional: No chills, No fever, No weakness Respiratory: No cough, No shortness of breath Cardiac: No chest pain Abdomen: No diarrhea, No nausea, No pain, No vomiting Medications Current Inpatient Medications Medications (Trade) Dose Ordered Sig/Mello Route Start Time Stop Time Status Last Admin Dose Admin Ioversol (Optiray 320) 100 ml UD PRN IV 12/06/16 21:00 12/10/16 20:59 Acetaminophen (Tylenol Tab) 650 mg Q4H PRN PO 12/06/16 23:00 01/05/17 22:59 Multivitamins/ Minerals (Multivitamin W/ Minerals Tab) 1 tab DAILY PO 12/07/16 09:00 01/06/17 08:59 12/08/16 09:06 1 TAB Pantoprazole Sodium (Protonix Tab) 40 mg BID PO 12/07/16 09:00 01/06/17 08:59 12/08/16 09:07 40 MG Ondansetron HCl (Zofran Inj) 4 mg Q6H PRN IV 12/06/16 23:00 01/05/17 22:59 Docusate Sodium (coLACE CAP) 100 mg DAILY PO 12/07/16 09:00 12/08/16 09:06 100 MG Thiamine HCl (Vitamin B-1 Tab) 100 mg QAM PO 12/07/16 09:00 01/06/17 08:59 12/08/16 09:06 100 MG Folic Acid 1 mg 1 mg QAM PO 12/07/16 09:00 01/06/17 08:59 12/08/16 09:06 1 MG Acetaminophen/ Empty Bag (Ofirmev Iv/ Empty Iv Bag 100ml) 65 ml @ 260 mls/hr Q6H PRN IV 12/06/16 23:00 01/05/17 22:59 Tramadol HCl (Ultram Tab) 25 mg Q6H PRN PO 12/06/16 23:00 01/05/17 22:59 Morphine Sulfate (MoRPHine SULFATE INJ) 2 mg Q4H PRN IV 12/06/16 23:00 12/20/16 22:59 Lorazepam (Ativan Inj) 1 mg ONE PRN IV 12/06/16 23:00 Nicotine (Nicoderm Cq 14MG Patch) 1 patch QAM TD 12/07/16 09:00 01/06/17 08:59 12/08/16 09:06 1 PATCH Miscellaneous (Remove Nicoderm Patch) 1 ea HS N/A 12/07/16 21:00 01/06/17 20:59 12/07/16 21:08 1 EA Gabapentin (Neurontin Tab) 600 mg Q8H PO 12/07/16 20:00 12/08/16 12:01 Gabapentin (Neurontin Tab) 600 mg Q12H PO 12/09/16 00:00 12/09/16 12:01 Gabapentin (Neurontin Tab) 600 mg TODAY@1200 PO 12/10/16 12:00 12/10/16 12:01 Miscellaneous (Iv Fluids Completed) 1 ea PRN PRN N/A 12/07/16 00:45 12/07/17 00:44 Objective Vital Signs Date Time Temp Pulse Resp B/P Pulse Ox O2 Delivery O2 Flow Rate FiO2 12/08/16 06:47 36.8 72 17 143/79 99 Room Air 12/07/16 23:15 Room Air 12/07/16 22:54 36.8 64 16 139/81 99 Room Air 12/07/16 15:46 36.3 69 18 146/89 99 Room Air 12/07/16 15:30 Room Air 12/07/16 12:00 36.7 69 16 135/82 99 Room Air Physical Exam General Appearance: no apparent distress, + thin Respiratory/Chest: lungs clear, normal breath sounds, no respiratory distress, no accessory muscle use Cardiovascular: regular rate, rhythm, no edema, no murmur Abdomen: normal bowel sounds, non tender, soft, no organomegaly, no pulsatile mass Laboratory Results Last 24 Hours Test 12/07/16 12:10 12/07/16 17:35 12/08/16 05:56 Hemoglobin 8.5 g/dL 8.1 g/dL 8.3 g/dL Hematocrit 31.7 % 29.9 % 31.2 % White Blood Count 7.67 K/uL Red Blood Count 5.18 M/uL Mean Corpuscular Volume 60.2 fL Mean Corpuscular Hemoglobin 16.0 pg Mean Corpuscular Hemoglobin Concent 26.6 g/dl Platelet Count 454 K/uL Mean Platelet Volume 8.5 fL Neutrophils (%) (Auto) 62.8 % Lymphocytes (%) (Auto) 21.4 % Monocytes (%) (Auto) 5.9 % Eosinophils (%) (Auto) 8.0 % Basophils (%) (Auto) 1.6 % Neutrophils # (Auto) 4.83 K/uL Lymphocytes # (Auto) 1.64 K/uL Monocytes # (Auto) 0.45 K/uL Eosinophils # (Auto) 0.61 K/uL Basophils # (Auto) 0.12 K/uL RDW Standard Deviation 43.3 fL RDW Coefficient of Variation 20.0 % Immature Granulocyte % (Auto) 0.3 % Immature Granulocyte # (Auto) 0.02 K/uL Hypochromasia PRESENT Anisocytosis PRESENT Microcytosis PRESENT Ovalocytes 1+ Sodium Level 141 mmol/L Potassium Level 4.1 mmol/L Chloride Level 107 mmol/L Carbon Dioxide Level 29 mmol/L Anion Gap 5.0 mmol/L Blood Urea Nitrogen 11 mg/dl Creatinine 0.76 mg/dl Est Creatinine Clear Calc Drug Dose 108.2 ml/min Estimated GFR () 122.4 Estimated GFR (Non- 105.6 BUN/Creatinine Ratio 14.4 Random Glucose 95 mg/dl Calcium Level 8.6 mg/dl Magnesium Level 2.4 mg/dl Assessment and Plan This is a 51 year old male with PMH of long-term alcohol use, tobacco use presents with epigastric tenderness and found to have anemia Microcytic Anemia, likely Iron Deficiency 12/08 Hgb is stable > 8 likely plan for outpatient colonoscopy and EGD will d/c home with iron supplementation, folic acid, thiamine, multivitamin appreciate GI input 12/07 Hgb on admission ~ 8.6 In December of 2015 is Hgb was around 13 MCV is low iron and transferring % saturation are low and TIBC is in the upper limits of normal, likely iron deficiency check stool occult question of possible gastric ulcer in the past? does have long-term alcohol use; possible varices? has never had a colonoscopy GI consulted Has not required transfusion as of yet PPI BID Epigastric Abdominal Pain Abdominal CT Short segment colo-colic Intussusception left upper quadrant near the splenic flexure which is most likely a transient and/or intermittent phenomenon. It is most likely of doubtful clinical significance unless it persists. appreciate general surgery input since the pain has since subsided no further management necessary at this time patient initially on clears, will advance as tolerated Alcohol Use patient presented with < 3.0 alcohol level He does admit to drinking multiple drinks daily uses folic acid, thiamine, multivitamin as prescribed by another prescriber at home currently on gabapentin protocol no withdrawal symptoms noted DVT ppx SCDs FULL CODE
[2016-12-08] MEDS ORDERED: CLC100 PO (11:28)
[2016-12-08] MEDS ORDERED: OMEP40CA41 PO ×2 (11:28→14:38)
[2016-12-08] MEDS ORDERED: FRRS300 PO (11:28)
[2016-12-08] MEDS ORDERED: FLV1 PO (11:28)
[2016-12-08] MEDS ORDERED: THM100 PO (11:28)
[2016-12-08] MEDS ORDERED: NCDT14 TD (11:29)
--- NOTE | 2016-12-08 14:04 | Medical Consult ---
Consultation Note Date of Service Dec 08, 2016. Consultation Note Reaons for consult: abd pain, iron def anemia HISTORY OF PRESENT ILLNESS: 51 yo M with PMH sig alcohol abuse describes 1 month h/o progressive upper abdominal pain. Approx three days prior to admission, pain became suddenly worse. Pt describes constant sharp pain radiating to back that worsened with meals, and not associated with n/v, change in bowel habits or stool colon. In ER, labs showed iron def anemia, LFT's/Lipase WNL, CT showed constipation and ? colocolonic intususception. U tox pos for mult drugs. Hemoccult neg in ER. Since admission, given PPI and bowel rest with near complete resolution of his symptoms. At present, he denies abd pain and has vigorous appetite; he is gris PO well. Of note, he takes Excedrin regularly for headaches. MEDICAL HISTORY: As above. No previous endoscopies in the past. SURGERIES: He had a chest tube insertion for traumatic pneumothorax. HOME MEDICATIONS: Home medications are Excedrin, multivitamins, Prilosec. ALLERGIES: No known drug allergies. FAMILY HISTORY: Heart disease, bone and prostate cancer. PERSONAL AND SOCIAL HISTORY: Half pack daily. Last drink was about 2 weeks ago. [employer] employee. REVIEW OF SYSTEMS: As per HPI, all other ROS negative. PHYSICAL EXAMINATION: Date Time Temp Pulse Resp B/P Pulse Ox O2 Delivery O2 Flow Rate FiO2 12/08/16 07:45 Room Air 12/08/16 06:47 36.8 72 17 143/79 99 Room Air 12/07/16 23:15 Room Air 12/07/16 22:54 36.8 64 16 139/81 99 Room Air 12/07/16 15:46 36.3 69 18 146/89 99 Room Air 12/07/16 15:30 Room Air GENERAL: Pleasant, comfortable. Sitting by lunch tray which is empty. SKIN: Mild pallor. HEENT: Pale palpebral conjunctivae. Dry mucosa. NECK: No JVD. supple CHEST: Clear to auscultation. HEART: Regular rate and rhythm. ABDOMEN: Epigastric tenderness. EXTREMITIES: No edema. no tenderness NEUROLOGIC: No gross focality. LABS: Last 24 Hours Test 12/07/16 17:35 12/08/16 05:56 Hemoglobin 8.1 g/dL 8.3 g/dL Hematocrit 29.9 % 31.2 % White Blood Count 7.67 K/uL Red Blood Count 5.18 M/uL Mean Corpuscular Volume 60.2 fL Mean Corpuscular Hemoglobin 16.0 pg Mean Corpuscular Hemoglobin Concent 26.6 g/dl Platelet Count 454 K/uL Mean Platelet Volume 8.5 fL Neutrophils (%) (Auto) 62.8 % Lymphocytes (%) (Auto) 21.4 % Monocytes (%) (Auto) 5.9 % Eosinophils (%) (Auto) 8.0 % Basophils (%) (Auto) 1.6 % Neutrophils # (Auto) 4.83 K/uL Lymphocytes # (Auto) 1.64 K/uL Monocytes # (Auto) 0.45 K/uL Eosinophils # (Auto) 0.61 K/uL Basophils # (Auto) 0.12 K/uL RDW Standard Deviation 43.3 fL RDW Coefficient of Variation 20.0 % Immature Granulocyte % (Auto) 0.3 % Immature Granulocyte # (Auto) 0.02 K/uL Hypochromasia PRESENT Anisocytosis PRESENT Microcytosis PRESENT Ovalocytes 1+ Sodium Level 141 mmol/L Potassium Level 4.1 mmol/L Chloride Level 107 mmol/L Carbon Dioxide Level 29 mmol/L Anion Gap 5.0 mmol/L Blood Urea Nitrogen 11 mg/dl Creatinine 0.76 mg/dl Est Creatinine Clear Calc Drug Dose 108.2 ml/min Estimated GFR () 122.4 Estimated GFR (Non- 105.6 BUN/Creatinine Ratio 14.4 Random Glucose 95 mg/dl Calcium Level 8.6 mg/dl Magnesium Level 2.4 mg/dl CT of the head, no acute pathology. Chest x-ray, no acute process. CT abdomen and pelvis showed considerable increase in fecal material, could consider fecal stasis, short segment colocolic intussusception, LUQ, splenic flexure, most likely transient and/or intermittent phenomenon, possible doubtful clinical process. UA normal UDS pos for amphetamine, ecstasy, marijuana ASSESSMENT: Alcohol, polysubstance abuse Heavy NSAID use Admit with upper abd pain, iron def anemia. - SUspect gastritis or PUD, related to alcohol and NSAID use. His symptoms are currently resolved. Ok for d/c. Will plan outpt EGD and cscopy. Please d/c on BID PPI and iron, folate supplements.
--- NOTE | 2016-12-08 14:41 | Discharge Instructions ---
Discharge Instructions Date of Service Dec 08, 2016. Admission Reason for Admission: Abdominal Pain Discharge Discharge Diagnosis / Problem: Anemia, Abdominal Pain Discharge Goals Goal(s): Decrease discomfort, Improve function, Diagnostic testing, Therapeutic intervention Activity Recommendations Activity Limitations: resume your previous activity . Instructions / Follow-Up Instructions / Follow-Up Please follow-up with Dr. Brody on December 17 @ 10:55AM Please take Prilosec 40mg twice a day You will be prescribed iron and folate supplements - please take these as prescribed Follow-up with GI for an outpatient colonoscopy and endoscopy Current Hospital Diet Patient's current hospital diet: Regular Diet Discharge Diet Recommended Diet: Regular Diet Pending Studies Studies pending at discharge: no Medical Emergencies . Who to Call and When: Medical Emergencies: If at any time you feel your situation is an emergency, please call 911 immediately. . Non-Emergent Contact Non-Emergency issues call your: Primary Care Provider, [facility] . . "Provider Documentation" section prepared by Kael Norwood. . VTE Core Measure Inpt VTE Proph given/why not?: SCD's
--- NOTE | 2016-12-08 14:42 | Discharge Summary ---
Discharge Summary Date of Service Dec 08, 2016. Discharge Summary Admission Date: Dec 06, 2016 at 22:48 Discharge Date: Dec 08, 2016 Discharge Disposition: Home Principal Diagnosis: Microcytic Anemia Abdominal Pain, resolved Medication Reconciliation New Medications: Ferrous Sulfate (Ferrous Sulfate) 325 Mg Tab 325 MG PO TID for 30 Days, #90 TABS Nicotine (Nicotine) 1 Patch Tdsy 14 MG TD DAILY for 30 Days, #1 BOX Omeprazole (Prilosec) 40 Mg Cap 1 CAP PO BID for 30 Days, #60 CAP 3 Refills Docusate Sodium (Docusate Sodium) 100 Mg Cap 100 MG PO DAILY for 30 Days, #30 CAP Folic Acid (Folic Acid) 1 Mg Tab 1 MG PO QAM for 30 Days, #30 TAB Thiamine HCl (Vitamin B-1) 100 Mg Tab 100 MG PO QAM for 30 Days, #30 TAB Continued Medications: [id number]-[id number] (Excedrin Migraine) 1 Tab Tab 1 TAB PO Q12 PRN for Headache Multivitamins/Minerals (Mvi With Minerals) Tab 1 TAB PO DAILY, #30 TAB 1 Refill Admission Information HPI (per Admitting provider): The patient is a 51 year old male who presents to the Emergency Room with complaints of persistent upper abdominal pain starting a few days ago. He describes it to be a sharp pain radiating to his back. He ran out of prescribed Prilosec 1-2 weeks days ago. He denies any recent trauma, falls, or injuries. He denies any recent weight gain or loss. He also denies any fevers, chest pain , shortness of breath, nausea, vomiting, dark/bloody stools, diarrhea, urinary symptoms, testicular pain/swelling, or any other complaints. He has a history of a stomach ulcer. He did not drink alcohol in the past few weeks and denies any history of alcohol withdrawal symptoms. He denies any history of abdominal surgeries or esophageal varices. He also denies any history of pancreatitis or gallbladder issues. now pt said he feels better, no abdominal pain, no nausea, no vomiting. Physical Exam (per Admitting): General Appearance: WD/WN, no apparent distress Head: normocephalic, atraumatic Eyes: normal inspection ENT: normal ENT inspection Neck: supple, no adenopathy, no JVD Respiratory/Chest: chest non-tender, lungs clear, normal breath sounds Cardiovascular: regular rate, rhythm, no edema, no gallop, no JVD Abdomen/GI: normal bowel sounds, non tender, soft, no organomegaly Extremities/Musculoskelatal: normal inspection, no calf tenderness, normal capillary refill Hospital Course This is a 51 year old male with PMH of long-term alcohol use, tobacco use presents with epigastric tenderness and found to have anemia Microcytic Anemia, likely Iron Deficiency 12/08 Hgb is stable > 8 likely plan for outpatient colonoscopy and EGD will d/c home with iron supplementation, folic acid, thiamine, multivitamin appreciate GI input 12/07 Hgb on admission ~ 8.6 In December of 2015 is Hgb was around 13 MCV is low iron and transferring % saturation are low and TIBC is in the upper limits of normal, likely iron deficiency check stool occult question of possible gastric ulcer in the past? does have long-term alcohol use; possible varices? has never had a colonoscopy GI consulted Has not required transfusion as of yet PPI BID Epigastric Abdominal Pain Abdominal CT Short segment colo-colic Intussusception left upper quadrant near the splenic flexure which is most likely a transient and/or intermittent phenomenon. It is most likely of doubtful clinical significance unless it persists. appreciate general surgery input since the pain has since subsided no further management necessary at this time patient initially on clears, will advance as tolerated Alcohol Use patient presented with < 3.0 alcohol level He does admit to drinking multiple drinks daily uses folic acid, thiamine, multivitamin as prescribed by another prescriber at home currently on gabapentin protocol no withdrawal symptoms noted DVT ppx SCDs FULL CODE Total time spent on discharge = 35 minutes This includes examination of the patient, discharge planning, medication reconciliation, and communication with other providers. Discharge Instructions Please follow-up with Dr. Brody on December 17 @ 10:55AM Please take Prilosec 40mg twice a day You will be prescribed iron and folate supplements - please take these as prescribed Follow-up with GI for an outpatient colonoscopy and endoscopy
[2016-12-08 15:54] VITALS: BP 143/79; PULSE 72; TEMP 36.8; O2SAT 99
[2016-12-09] MEDS ORDERED: GABAPENTIN 600 MG TAB PO SCH
[2016-12-10 00:33] LABS: IGA SERUM 235 mg/dL (81-463); TIS TRANS IGA 1 U/mL (<4)
[2016-12-10] MEDS ORDERED: GABAPENTIN 600 MG TAB PO SCH (12:00)
== END 2016-12-08 16:53 | disposition home or self-care (01) ==
LOC: ENRESERVDT → ENRESERVTM → C.EDB 17:49 → C.MSN 22:48
PROVIDERS: ADMIT Internal Medicine; ATTEND Family Medicine
DX: D50.9 Iron deficiency anemia, unspecified (principal); F10.10 Alcohol abuse, uncomplicated; R10.13 Epigastric pain; K56.1 Intussusception; E85.2 Heredofamilial amyloidosis, unspecified; K21.9 Gastro-esophageal reflux disease without esophagitis; F17.210 Nicotine dependence, cigarettes, uncomplicated; Z82.49 Family history of ischemic heart disease and other diseases of the circulatory system; Z80.42 Family history of malignant neoplasm of prostate

== ENCOUNTER 2017-08-19 19:21 | Emergency (ER) | payer OTHER ==
[~2017-08-19] VITALS: Ht 180.3 cm; Wt 72.7 kg
[~2017-08-19 19:21] MED LIST changes: -ALBUAER19 INH; +CLC100 PO; +FRRS300 PO; +NCDT14 TD; +OMEP40CA41 PO; -PRLSR20 PO; -TRAM-10 PO
[2017-08-19 19:31] VITALS: TEMP 37; Ht 180.3 cm; Wt 72.7 kg
[2017-08-19 19:47] VITALS: O2SAT 100
[2017-08-19] MEDS ORDERED: ALBUT/IPRATROP 3MG/0.5MG NEB 3 ML VIAL INH STA (20:04)
--- NOTE | 2017-08-19 20:11 | EMERGENCY ROOM VISIT NOTE ---
History Report prepared by Wandaibgerardo: Teresa Duenas Under the Supervision of: Dr. Arnav Ambriz D.O. First contact with patient: 19:50 Chief Complaint: COUGH Stated Complaint: BAD BODYACHE, CHEST PAIN History of Present Illness The patient is a 52 year old male who presents to the Emergency Room with complaints of intermittent chest pain beginning last night. The patient states that when he moves or coughs his pain worsens. He notes shortness of breath, sinus congestion, a runny nose, body aches, and a productive cough beginning a couple days ago. He denies any fever, recent falls, or injuries. The patient has a history of pneumonia and states his symptoms feel like the last time he had pneumonia. The patient was seen at a clinic today and referred to the ED for further testing. The patient is a smoker. Source of History: patient Onset: last night Position: chest Quality: other (pain) Timing: intermittent Modifying Factors (Worsening): movement Associated Symptoms: + cough, + chest pain, + SOB, No fevers Review of Systems See HPI for pertinent positives & negatives. A total of 10 systems reviewed and were otherwise negative. Past Medical & Surgical Medical Problems: (1) Abdominal pain (2) Alcohol abuse (3) Chest pain (4) GERD (gastroesophageal reflux disease) (5) History traumatic pneumothorax (6) Pneumonia (7) Stomach problems (8) Tobacco use disorder (9) Ulcer Surgical Problems: (1) H/O chest tube placement Family History FH: CAD (coronary artery disease) FATHER (triple bypass in 70s) BROTHER (MO in 50s) FH: cancer FATHER (bone and prostate CA) Social History Smoking Status: Current Every Day Smoker Alcohol Use: occasionally Drug Use: none Housing Status: lives alone Occupation Status: employed Current/Historical Medications Scheduled Albuterol Hfa (Ventolin Hfa), 1 PUFF INH Q4 Levofloxacin (Levaquin), 500 MG PO DAILY Scheduled PRN Httastk-Dwupwqwoufqbo-Edfxyrrl (Excedrin Migraine), 1 TAB PO Q12 PRN for Headache Omeprazole (Prilosec), 40 MG PO BID PRN for Acid Reflux Allergies Coded Allergies: No Known Allergies (Verified , 12/06/16) Physical Exam Vital Signs Date Time Temp Pulse Resp B/P (MAP) Pulse Ox O2 Delivery O2 Flow Rate FiO2 08/19/17 21:59 89 18 123/81 99 Room Air 08/19/17 20:38 95 18 143/85 99 Room Air 08/19/17 20:04 96 Room Air 08/19/17 19:53 84 08/19/17 19:47 100 Room Air 08/19/17 19:47 100 Room Air 08/19/17 19:31 37.0 79 20 /126 98 Room Air Physical Exam GENERAL: Patient is awake, alert, and in no acute distress. Patient is resting comfortably and showing no signs of anxiety EYES: The conjunctivae are clear. The pupils are round and reactive. EARS, NOSE, MOUTH AND THROAT: The nose is without any evidence of any deformity. Mucous membranes are moist tongue is midline NECK: The neck is nontender and supple. RESPIRATORY: Scattered rhonchi throughout no tachypnea or conversational dyspnea noted. CARDIOVASCULAR: Regular rate and rhythm noted there no murmurs rubs or gallops normal S1 normal S2 GASTROINTESTINAL: The abdomen is soft. Bowel sounds are present in all quadrants. Abdomen is nontender MUSCULOSKELETAL/EXTREMITIES: There is no evidence of gross deformity full range of motion is noted in the hips and shoulders SKIN: There is no obvious evidence of any rash. There are no petechiae, pallor or cyanosis noted. NEUROLOGIC: Patient is awake alert and oriented x3 Medical Decision & Procedures ER Provider Diagnostic Interpretation: Radiology results as stated below per my review and radiologist interpretation: CHEST ONE VIEW PORTABLE FINDINGS: Calcified granuloma of the left lung base redemonstrated. Cardiac silhouette is within normal limits. There is no pneumothorax, pleural effusion, focal airspace consolidation or overt pulmonary edema. Chronic blunting of the the left costophrenic angle suggests area of pleural-parenchymal scarring. The bones of the chest appear to be grossly intact. IMPRESSION: No acute process. The above report was generated using voice recognition software. It may contain grammatical, syntax or spelling errors. Electronically signed by: Caio Andujar M.D. Laboratory Results 08/19/17 20:04 Red Blood Count 5.78, Mean Corpuscular Volume 61.1, Mean Corpuscular Hemoglobin 17.0, Mean Corpuscular Hemoglobin Concent 27.8, Mean Platelet Volume 8.5, Neutrophils (%) (Auto) 85.9, Lymphocytes (%) (Auto) 8.0, Monocytes (%) (Auto) 3.2, Eosinophils (%) (Auto) 2.5, Basophils (%) (Auto) 0.2, Neutrophils # (Auto) 8.34, Lymphocytes # (Auto) 0.78, Monocytes # (Auto) 0.31, Eosinophils # (Auto) 0.24, Basophils # (Auto) 0.02 08/19/17 20:04 Test 08/19/17 20:00 08/19/17 20:04 Influenza Type A (RT-PCR) Neg for Influ A (NEG) Influenza Type A Antigen Neg for Influ A (NEG) Influenza Type B Antigen Neg for Influ B (NEG) Influenza Type B (RT-PCR) Neg for Influ B (NEG) White Blood Count 9.71 K/uL (4.8-10.8) Red Blood Count 5.78 M/uL (4.7-6.1) Hemoglobin 9.8 g/dL (14.0-18.0) Hematocrit 35.3 % (42-52) Mean Corpuscular Volume 61.1 fL (80-100) Mean Corpuscular Hemoglobin 17.0 pg (25-34) Mean Corpuscular Hemoglobin Concent 27.8 g/dl (32-36) Platelet Count 533 K/uL (130-400) Mean Platelet Volume 8.5 fL (7.4-10.4) Neutrophils (%) (Auto) 85.9 % Lymphocytes (%) (Auto) 8.0 % Monocytes (%) (Auto) 3.2 % Eosinophils (%) (Auto) 2.5 % Basophils (%) (Auto) 0.2 % Neutrophils # (Auto) 8.34 K/uL (1.4-6.5) Lymphocytes # (Auto) 0.78 K/uL (1.2-3.4) Monocytes # (Auto) 0.31 K/uL (0.11-0.59) Eosinophils # (Auto) 0.24 K/uL (0-0.5) Basophils # (Auto) 0.02 K/uL (0-0.2) RDW Standard Deviation 47.1 fL (36.4-46.3) RDW Coefficient of Variation 21.8 % (11.5-14.5) Immature Granulocyte % (Auto) 0.2 % Immature Granulocyte # (Auto) 0.02 K/uL (0.00-0.02) Hypochromasia PRESENT Anisocytosis PRESENT Microcytosis PRESENT Prothrombin Time 10.0 SECONDS (9.0-12.0) Prothromb Time International Ratio 1.0 (0.9-1.1) Activated Partial Thromboplast Time 28.2 SECONDS (21.0-31.0) Partial Thromboplastin Ratio 1.1 Anion Gap 6.0 mmol/L (3-11) Est Creatinine Clear Calc Drug Dose 93.5 ml/min Estimated GFR () 106.2 Estimated GFR (Non- 91.7 BUN/Creatinine Ratio 9.0 (10-20) Calcium Level 8.9 mg/dl (8.5-10.1) Total Bilirubin 0.4 mg/dl (0.2-1) Direct Bilirubin < 0.1 mg/dl (0-0.2) Aspartate Amino Transf (AST/SGOT) 20 U/L (15-37) Alanine Aminotransferase (ALT/SGPT) 26 U/L (12-78) Alkaline Phosphatase 126 U/L (45-117) Troponin I < 0.015 ng/ml (0-0.045) Total Protein 8.8 gm/dl (6.4-8.2) Albumin 3.7 gm/dl (3.4-5.0) Lipase 183 U/L (73-393) Laboratory results per my review. Medications Administered Medications (Trade) Dose Ordered Sig/Mello Route Start Time Stop Time Status Last Admin Dose Admin Albuterol/ Ipratropium (Duoneb) 3 ml NOW STAT INH 08/19/17 20:04 08/19/17 20:06 DC 08/19/17 20:09 3 ML Levofloxacin (Levaquin Tab) 500 mg NOW STAT PO 08/19/17 21:34 08/19/17 21:35 DC 08/19/17 21:56 500 MG Albuterol (Ventolin Hfa Inhaler) 2 puffs NOW ONCE INH 08/19/17 21:45 08/19/17 21:46 DC 08/19/17 21:56 2 PUFFS ECG Indication: chest pain Rate (beats per minute): 84 Rhythm: normal sinus Findings: no ectopy, other (no acute ST segment abnormality) Comparison ECG Date: 12/06/16 Change: no significant change ED Course 2002: The patient was evaluated in room A10. A complete history and physical examination were performed. 2003: Ordered Duoneb 3 ml INH. 2133: Ordered Levofloxacin 500 mg PO. 2142: I updated the patient on his test results. 2144: Ordered Albuterol 2 puffs INH. 2150: Upon reevaluation, the patient is resting comfortably. I discussed the results and treatment plan with him. He verbalized agreement of the treatment plan. The patient was discharged home. Medical Decision Differential diagnosis: Etiologies such as infections, reactive airway disease, pneumonia, pneumothorax , COPD, CHF, cardiac ischemia, pulmonary embolism, musculoskeletal, gastrointestinal, as well as others were entertained. Nursing notes reviewed. The patient is a 52-year-old male who presented to the emergency department with cough and chest pain. The patient is had ongoing symptoms for the last few days. He does not appear to have any acute changes in his EKG and his cardiac biomarkers are negative. I discussed the patient's laboratory radiographic studies with him. He was given a DuoNeb. At this time I feel his condition is consistent with bronchitis. He was encouraged to rest and avoid any strenuous activity. He was also encouraged to call his family to schedule a follow-up appointment. Otherwise he was encouraged to return to the emergency apartment immediately if symptoms change worsen or the need arises. Medication Reconcilliation Current Medication List: was personally reviewed by me Blood Pressure Screening Patient's blood pressure: Elevated blood pressure Blood pressure disposition: Referred to PCP Impression Primary Impression: Chest pain Additional Impression: Bronchitis Scribe Attestation The scribe's documentation has been prepared under my direction and personally reviewed by me in its entirety. I confirm that the note above accurately reflects all work, treatment, procedures, and medical decision making performed by me. Departure Information Dispostion Home / Self-Care Prescriptions Albuterol Hfa (VENTOLIN HFA) 200 Puffs/32484 Mcg Aers 1 PUFF INH Q4, #1 INHALER Prov: Arnav Ambriz, DO 08/19/17 Levofloxacin (Levaquin) 500 Mg Tab 500 MG PO DAILY, #7 TAB Prov: Arnav Ambriz, DO 08/19/17 Referrals Pieter Brody, D.OJuan Manuel (PCP) Forms HOME CARE DOCUMENTATION FORM, IMPORTANT VISIT INFORMATION Patient Instructions Bronchitis Acute, My [facility] Additional Instructions Call your family to schedule a follow-up appointment. Rest and avoid any strenuous activity. Continue all medications as prescribed. Continue using Motrin and Tylenol as directed for pain. Problem Qualifiers Primary Impression: Chest pain Chest pain type: unspecified Qualified Codes: R07.9 - Chest pain, unspecified
--- NOTE | 2017-08-19 20:17 | DIAGNOSTIC IMAGING REPORT ---
CHEST ONE VIEW PORTABLE HISTORY: 52 years-old Male CHEST PAIN acute atypical chest pain COMPARISON: Chest radiograph 12/06/2016 TECHNIQUE: Portable AP view of the chest FINDINGS: Calcified granuloma of the left lung base redemonstrated. Cardiac silhouette is within normal limits. There is no pneumothorax, pleural effusion, focal airspace consolidation or overt pulmonary edema. Chronic blunting of the the left costophrenic angle suggests area of pleural-parenchymal scarring. The bones of the chest appear to be grossly intact. IMPRESSION: No acute process. The above report was generated using voice recognition software. It may contain grammatical, syntax or spelling errors. Electronically signed by: Caio Andujar M.D. 08/19/2017 8:16 PM Dictated Date/Time: 08/19/2017 8:15 PM
[2017-08-19 20:28] LABS: PTT PATIENT 28.2 SECONDS (21.0-31.0)
[2017-08-19 20:38] LABS: HEMATOCRIT 35.3 % (42-52); HEMOGLOBIN 9.8 g/dL (14.0-18.0); MEAN CELL VOLUME 61.1 fL (80-100); MEAN CORPUSCULAR HGB CONC 27.8 g/dl (32-36); MEAN PLATELET VOLUME 8.5 fL (7.4-10.4); PLATELET COUNT 533 K/uL (130-400); RED CELL DISTRIBUTION WIDTH CV 21.8 % (11.5-14.5); RED CELL DISTRIBUTION WIDTH SD 47.1 fL (36.4-46.3); WHITE BLOOD COUNT 9.71 K/uL (4.8-10.8)
[2017-08-19] MEDS ORDERED: OMEP40CA41 PO (20:38)
[2017-08-19 20:39] LABS: ALBUMIN 3.7 gm/dl (3.4-5.0); ALT/SGPT 26 U/L (12-78); AST/SGOT 20 U/L (15-37); BLOOD UREA NITROGEN 9 mg/dl (7-18); CALCIUM 8.9 mg/dl (8.5-10.1); CARBON DIOXIDE 28 mmol/L (21-32); CREATININE 0.95 mg/dl (0.60-1.40); GLUCOSE 86 mg/dl (70-99); LIPASE 183 U/L (73-393); POTASSIUM 3.6 mmol/L (3.5-5.1); SODIUM 135 mmol/L (136-145)
[2017-08-19 20:44] LABS: ALKALINE PHOSPHATASE 126 U/L (45-117); TOTAL PROTEIN 8.8 gm/dl (6.4-8.2)
[2017-08-19 20:45] LABS: BASO % 0.2 %; BASO ABS # 0.02 K/uL (0-0.2); EOS % 2.5 %; EOS ABS # 0.24 K/uL (0-0.5); IG# 0.02 K/uL (0.00-0.02); LYMPH ABS # 0.78 K/uL (1.2-3.4); MONO % 3.2 %; MONO ABS # 0.31 K/uL (0.11-0.59); NEUT % 85.9 %; NEUT ABS # 8.34 K/uL (1.4-6.5)
[2017-08-19 21:21] LABS: INFLUENZA B ANTIGEN Neg for Influ B (NEG)
[2017-08-19] MEDS ORDERED: LEVOFLOXACIN 250 MG TAB PO STA (21:34)
[2017-08-19] MEDS ORDERED: VNTHFA/IN INH (21:37)
[2017-08-19] MEDS ORDERED: LEVO-366 PO (21:37)
[2017-08-19] MEDS ORDERED: ALBUTEROL HFA 8 GM INHALER INH ONE (21:45)
[2017-08-19 21:59] VITALS: BP 123/81; PULSE 89; O2SAT 99
[2017-08-19 22:22] LABS: INFLUENZA A PCR Neg for Influ A (NEG); INFLUENZA B PCR Neg for Influ B (NEG)
== END 2017-08-19 22:04 | disposition home or self-care (01) ==
LOC: C.EDB 19:23 → C.EDA 22:04
DX: J40 Bronchitis, not specified as acute or chronic (principal); Z87.01 Personal history of pneumonia (recurrent); F17.210 Nicotine dependence, cigarettes, uncomplicated; K21.9 Gastro-esophageal reflux disease without esophagitis; Z82.49 Family history of ischemic heart disease and other diseases of the circulatory system; Z80.42 Family history of malignant neoplasm of prostate